=== PATIENT | female | born 1990 | race Caucasian/White ===

== ENCOUNTER 2022-04-18 16:34 | Inpatient (IN) | payer BC ==
[~2022-04-18] VITALS: Ht 165.1 cm; Wt 86.2 kg
[2022-04-18] MEDS ORDERED: BUSPAR 10MG10 MG PO (17:01)
[2022-04-18] MEDS ORDERED: PRENATAL VITAM1 EAC8 PO (17:02)
[2022-04-18] MEDS ORDERED: PEPCID20 MG PO (17:02)
[2022-04-18] MEDS ORDERED: TUMS200 MG PO (17:02)
[2022-04-18 17:30] LABS: HEMOGLOBIN 12.1 gm/dl (12.3-15.3); RED BLOOD COUNT 3.94 M/UL (4.00-5.10)
[2022-04-19 09:30] LABS: BUN/CREATININE RATIO 7 (0-10)
[2022-04-19] MEDS ORDERED: COLACE 100MG C100 MG PO (16:09)
[2022-04-19] MEDS ORDERED: IBUPROFEN800 MG PO (16:09)
[2022-04-19] MEDS ORDERED: HYDROCODON-ACE1 EAC4 PO (16:09)
[2022-04-20 07:23] LABS: HEMOGLOBIN 10.4 gm/dl (12.3-15.3)
== END 2022-04-21 16:14 | disposition home or self-care (01) | DRG 807 ==
LOC: GENOP 16:34 → OB 16:54
PROVIDERS: Obstetrics & Gynecology; ADMIT Obstetrics & Gynecology
PROC: 4A1HXCZ Monitoring of Products of Conception, Cardiac Rate, External Approach (ICD-10-PCS; 2022-04-18)
PROC: 10E0XZZ Delivery of Products of Conception, External Approach (ICD-10-PCS; principal; 2022-04-19)
PROC: 10907ZC Drainage of Amniotic Fluid, Therapeutic from Products of Conception, Via Natural or Artificial Opening (ICD-10-PCS; 2022-04-19)
PROC: 0HQ9XZZ Repair Perineum Skin, External Approach (ICD-10-PCS; 2022-04-19)
PROC: 10H07YZ Insertion of Other Device into Products of Conception, Via Natural or Artificial Opening (ICD-10-PCS; 2022-04-19)
PROC: 3E033VJ Introduction of Other Hormone into Peripheral Vein, Percutaneous Approach (ICD-10-PCS; 2022-04-19)
PROC: 3E0234Z Introduction of Serum, Toxoid and Vaccine into Muscle, Percutaneous Approach (ICD-10-PCS; 2022-04-19)
DX: O13.4 Gestational [pregnancy-induced] hypertension without significant proteinuria, complicating childbirth (principal); Z37.0 Single live birth; Z20.822 Contact with and (suspected) exposure to COVID-19; Z3A.37 37 weeks gestation of pregnancy; O99.344 Other mental disorders complicating childbirth; F41.9 Anxiety disorder, unspecified; Z80.3 Family history of malignant neoplasm of breast; O99.334 Smoking (tobacco) complicating childbirth; F17.210 Nicotine dependence, cigarettes, uncomplicated; O70.0 First degree perineal laceration during delivery; Z23 Encounter for immunization
CPT/HCPCS: 36415; 80053; 81001; 82570; 82800; 83615; 84156; 84550; 85014; 85018; 85025; 90715; J2590